=== PATIENT | female | born 1990 | race Caucasian/White ===

== ENCOUNTER 2017-03-07 12:36 | Emergency (ER) | payer OTHER ==
[2017-03-07 12:44] VITALS: BP 124/78
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
== END 2017-03-07 13:03 | disposition home or self-care (01) ==
LOC: ER 12:36
DX: K04.8 Radicular cyst (principal); K05.10 Chronic gingivitis, plaque induced; E10.69 Type 1 diabetes mellitus with other specified complication; F41.8 Other specified anxiety disorders; F17.200 Nicotine dependence, unspecified, uncomplicated